=== PATIENT | female | born 1965 ===

== ENCOUNTER → 2017-08-03 | Emergency (ER) | payer OTHER ==
[~2017-08-03] VITALS: Ht 165.1 cm; Wt 67.6 kg
[~2017-08-03] MED LIST: DICLOFENAC SODI50 MG PO; KETO10TA2 PO; SUPER B-50 COM1 EACH
== END | disposition home or self-care (01) ==
LOC: ER 17:07
DX: K52.9 Noninfective gastroenteritis and colitis, unspecified (principal)